=== PATIENT | male | born 1995 | race Caucasian/White ===

== ENCOUNTER 2016-07-02 05:34 | Emergency (ER) | payer OTHER ==
[~2016-07-02] VITALS: Ht 175.3 cm; Wt 58.0 kg
[2016-07-02] MEDS ORDERED: diphenhydrAMINE HCL 50 MG/ML VIAL ONE (05:36)
[2016-07-02] MEDS ORDERED: HALOPERIDOL LACTATE 5 MG/ML AMP ONE (05:37)
[2016-07-02] MEDS ORDERED: HALOPERIDOL LACTATE 5 MG/ML AMP IM ONE (05:45)
[2016-07-02] MEDS ORDERED: diphenhydrAMINE HCL 50 MG/ML VIAL IM ONE (05:45)
--- NOTE | 2016-07-02 05:50 | PD ---
HPI Chief Complaint: Psychiatric Symptoms Time Seen by Provider: 05:37 Travel History International Travel<30 days: No Contact w/Intl Traveler<30days: No History of Present Illness HPI Patient is a 20-year-old male presents to emergency department by EMS after being found unconscious by police on the side of the road. According to police officers she gave a sternal rub the patient and he was unresponsive she called for EMS and when EMS. They sternal rub him and he became quite agitated and aggravated. His only willingness to communicate to us at this point is by calling a saw "elaine everett". Patient had to be restrained and sedated by EMS. On arrival he is screaming and saying profanities. No other history is available at this time. [facility] Past Medical History Medical History: Unable to Obtain Past Surgical History Surgical History: Unable to Obtain Family History Family History: Social History Tobacco Use: No (unable to obtain) Allergies-Medications (Allergen,Severity, Reaction): Coded Allergies: UNOBTAINABLE (Unverified , 07/02/16) Reported Meds & Prescriptions Reported Meds & Active Scripts Active Active Prescriptions or Reported Medications Unobtainable Review of Systems ROS Limitations: Altered Mental Status Physical Exam Narrative GENERAL: Well-developed well-nourished agitated and aggressive, 4-point restraints and screaming profanities. SKIN: Focused skin assessment warm/dry. Patient does have an abrasion to left side of his head and face. No lacerations. Hemostatic. HEAD: No tracy signs no raccoons eyes. Normocephalic. EYES: Pupils equal and round. No scleral icterus. No injection or drainage. ENT: No nasal bleeding or discharge. Mucous membranes pink and moist. NECK: Trachea midline. No JVD. CARDIOVASCULAR: Regular rate and rhythm. No murmur appreciated. RESPIRATORY: No accessory muscle use. Clear to auscultation. Breath sounds equal bilaterally. GASTROINTESTINAL: Abdomen soft, non-tender, nondistended. Hepatic and splenic margins not palpable. MUSCULOSKELETAL: No obvious deformities. No clubbing. No cyanosis. No edema. NEUROLOGICAL: Agitated and aggressive. Will not cooperate. Data Data Last Documented VS Vital Signs Date Time Temp Pulse Resp B/P Pulse Ox O2 Delivery O2 Flow Rate FiO2 07/02/16 08:02 80 18 100/53 99 Room Air Orders Diphenhydramine Inj (Benadryl Inj) (07/02/16 05:36) Haloperidol Inj (Haldol Inj) (07/02/16 05:37) Haloperidol Inj (Haldol Inj) (07/02/16 05:45) Diphenhydramine Inj (Benadryl Inj) (07/02/16 05:45) Ct Brain W/O Iv Contrast(Rout) (07/02/16 ) Restraints Violent (07/02/16 05:58) Complete Blood Count With Diff (07/02/16 07:00) Comprehensive Metabolic Panel (07/02/16 07:00) Psych Screen (07/02/16 07:00) Drug Screen, Random Urine (07/02/16 07:00) Alcohol (Ethanol) (07/02/16 07:00) Salicylates (Aspirin) (07/02/16 07:00) Tylenol (Acetaminophen) (07/02/16 07:00) Labs Laboratory Tests Test 07/02/16 07:27 White Blood Count 8.6 TH/MM3 Red Blood Count 5.04 MIL/MM3 Hemoglobin 15.3 GM/DL Hematocrit 44.4 % Mean Corpuscular Volume 88.2 FL Mean Corpuscular Hemoglobin 30.4 PG Mean Corpuscular Hemoglobin 34.5 % Concent Red Cell Distribution Width 12.9 % Platelet Count 327 TH/MM3 Mean Platelet Volume 7.8 FL Neutrophils (%) (Auto) 65.6 % Lymphocytes (%) (Auto) 23.8 % Monocytes (%) (Auto) 7.8 % Eosinophils (%) (Auto) 2.3 % Basophils (%) (Auto) 0.5 % Neutrophils # (Auto) 5.6 TH/MM3 Lymphocytes # (Auto) 2.0 TH/MM3 Monocytes # (Auto) 0.7 TH/MM3 Eosinophils # (Auto) 0.2 TH/MM3 Basophils # (Auto) 0.0 TH/MM3 CBC Comment DIFF FINAL Differential Comment Salicylates Level 2.2 MG/DL MDM Medical Decision Making Medical Screen Exam Complete: Yes Emergency Medical Condition: Yes Differential Diagnosis Agitated delirium, intoxication, head injury, electrolyte abnormality. Narrative Course Patient was roomed in emergency department, he received Ativan 2 mg IM prior to arrival. Arrived in 4-point restraints. Security has helped us to rest of the patient from the EMS stretcher onto the hospital stretcher. He was placed in 4 point restraints. Remains agitated and aggressive. Was given Benadryl and Haldol IM. He does abrasions on the left side of his head and will not give history CT head is indicated. CT head is negative. Basic labs are ordered including tox screen. Patient was discussed with Dr. Jared Beasley at 0700 for following of labs and disposition and properly. Diagnosis Primary Impression: Delirium Scripts Unable to Obtain Active Prescriptions or Reported Meds Erasmo Bentley MD Jul 02, 2016 05:50
--- NOTE | 2016-07-02 06:47 | RADRPT ---
EXAM DATE/TIME: 07/02/2016 06:36 [facility] COMPARISON: No previous studies available for comparison. INDICATIONS : Altered mental status, ETOH along with fall. Cut above left eyebrow. RADIATION DOSE: 41.25 CTDIvol (mGy) MEDICAL HISTORY : Unobtainable SURGICAL HISTORY : Unobtainable ENCOUNTER: Initial ACUITY: 1 day PAIN SCALE: 0/10 LOCATION: cranial TECHNIQUE: Multiple contiguous axial images were obtained of the head. Using automated exposure control and adj ustment of the mA and/or kV according to patient size, radiation dose was kept as low as reasonably a chievable to obtain optimal diagnostic quality images. FINDINGS: CEREBRUM: The ventricles are normal for age. No evidence of midline shift, mass lesion, hemorrhage or acute in farction. No extra-axial fluid collections are seen. POSTERIOR FOSSA: The cerebellum and brainstem are intact. The 4th ventricle is midline. The cerebellopontine angle i s unremarkable. EXTRACRANIAL: The visualized portion of the orbits is intact. SKULL: The calvaria is intact. No evidence of skull fracture. CONCLUSION: Normal examination. Darryl Ndiaye Jr., MD on July 02, 2016 at 6:44 Board Certified Radiologist. This report was verified electronically.
[2016-07-02 07:47] LABS: AUTOMATED NEUTROPHIL # 5.6 TH/MM3 (1.8-7.7); BASOPHIL % 0.5 % (0.0-2.0); EOSINOPHIL # 0.2 TH/MM3 (0-0.4); EOSINOPHIL % 2.3 % (0.0-4.0); HEMATOCRIT 44.4 % (39.0-51.0); HEMO FLAGS DIFF FINAL; LYMPH % 23.8 % (9.0-44.0); MEAN CELL VOLUME 88.2 FL (80.0-100.0); MEAN CORPUSCULAR HEMOGLOBIN 30.4 PG (27.0-34.0); MEAN CORPUSCULAR HGB CONC 34.5 % (32.0-36.0); MONO % 7.8 % (0.0-8.0); NEUT % 65.6 % (16.0-70.0); PLATELET COUNT 327 TH/MM3 (150-450); RED BLOOD COUNT 5.04 MIL/MM3 (4.50-5.90); RED CELL DISTRIBUTION WIDTH 12.9 % (11.6-17.2); WHITE BLOOD COUNT 8.6 TH/MM3 (4.0-11.0)
[2016-07-02 08:02] VITALS: BP 100/53; PULSE 80; RESP 18; O2SAT 99
[2016-07-02 08:14] LABS: ALKALINE PHOSPHATASE 60 U/L (45-117); TOTAL BILIRUBIN ADULT 0.3 MG/DL (0.2-1.0)
[2016-07-02 08:17] LABS: ALT (GPT) 35 U/L (12-78); ANION GAP 10 MEQ/L (5-15); AST (GOT) 31 U/L (15-37); BICARBONATE 26.4 MEQ/L (21.0-32.0); BLOOD UREA NITROGEN 14 MG/DL (7-18); CHLORIDE 108 MEQ/L (98-107); GLOMERULAR FILTRATION RATE 84 ML/MIN (>89); POTASSIUM 3.3 MEQ/L (3.5-5.1); SODIUM (NA) 144 MEQ/L (136-145)
[2016-07-02 08:19] LABS: ACETAMINOPHEN LESS THAN 2.0 MCG/ML (10.0-30.0)
[2016-07-02 09:30] LABS: AMPHETAMINE, URINE NEG (NEG)
[2016-07-02 10:22] LABS: COCAINE, URINE NEG (NEG)
[2016-07-02 10:45] LABS: BARBITURATES, URINE NEG (NEG)
[2016-07-02] MEDS ORDERED: POTASSIUM CHLORIDE 20 MEQ PWD PACKET PO ONE (11:00)
[2016-07-02 11:27] VITALS: BP 110/65; PULSE 78; RESP 18; O2SAT 99
--- NOTE | 2016-07-02 14:16 | PD ---
Physical Exam Date Seen by Provider: Jul 02, 2016 Time Seen by Provider: 07:00 Narrative She was signed out to me by Dr. Erasmo Bentley, night physician. She came in combative and agitated. He was given Haldol and Benadryl for control. Laboratory tests were pending at the time of signout. Patient's labs come back showing an alkaline of 299. The rest of his labs are within normal emits except for positive cannabinoids on tox screen. Data Data Last Documented VS Vital Signs Date Time Temp Pulse Resp B/P Pulse Ox O2 Delivery O2 Flow Rate FiO2 07/02/16 11:27 78 18 110/65 99 Room Air Orders Diphenhydramine Inj (Benadryl Inj) (07/02/16 05:36) Haloperidol Inj (Haldol Inj) (07/02/16 05:37) Haloperidol Inj (Haldol Inj) (07/02/16 05:45) Diphenhydramine Inj (Benadryl Inj) (07/02/16 05:45) Ct Brain W/O Iv Contrast(Rout) (07/02/16 ) Restraints Violent (07/02/16 05:58) Complete Blood Count With Diff (07/02/16 07:00) Comprehensive Metabolic Panel (07/02/16 07:00) Drug Screen, Random Urine (07/02/16 07:00) Alcohol (Ethanol) (07/02/16 07:00) Salicylates (Aspirin) (07/02/16 07:00) Tylenol (Acetaminophen) (07/02/16 07:00) Potassium Chloride Powder (Kcl Powder) (07/02/16 11:00) Labs Laboratory Tests Test 07/02/16 07/02/16 07:27 08:20 White Blood Count 8.6 TH/MM3 Red Blood Count 5.04 MIL/MM3 Hemoglobin 15.3 GM/DL Hematocrit 44.4 % Mean Corpuscular Volume 88.2 FL Mean Corpuscular Hemoglobin 30.4 PG Mean Corpuscular Hemoglobin 34.5 % Concent Red Cell Distribution Width 12.9 % Platelet Count 327 TH/MM3 Mean Platelet Volume 7.8 FL Neutrophils (%) (Auto) 65.6 % Lymphocytes (%) (Auto) 23.8 % Monocytes (%) (Auto) 7.8 % Eosinophils (%) (Auto) 2.3 % Basophils (%) (Auto) 0.5 % Neutrophils # (Auto) 5.6 TH/MM3 Lymphocytes # (Auto) 2.0 TH/MM3 Monocytes # (Auto) 0.7 TH/MM3 Eosinophils # (Auto) 0.2 TH/MM3 Basophils # (Auto) 0.0 TH/MM3 CBC Comment DIFF FINAL Differential Comment Sodium Level 144 MEQ/L Potassium Level 3.3 MEQ/L Chloride Level 108 MEQ/L Carbon Dioxide Level 26.4 MEQ/L Anion Gap 10 MEQ/L Blood Urea Nitrogen 14 MG/DL Creatinine 1.10 MG/DL Estimat Glomerular Filtration 84 ML/MIN Rate Random Glucose 87 MG/DL Calcium Level 8.7 MG/DL Total Bilirubin 0.3 MG/DL Aspartate Amino Transf 31 U/L (AST/SGOT) Alanine Aminotransferase 35 U/L (ALT/SGPT) Alkaline Phosphatase 60 U/L Total Protein 7.1 GM/DL Albumin 4.2 GM/DL Salicylates Level 2.2 MG/DL Acetaminophen Level LESS THAN 2.0 MCG/ML Ethyl Alcohol Level 299 MG/DL Urine Opiates Screen NEG Urine Barbiturates Screen NEG Urine Amphetamines Screen NEG Urine Benzodiazepines Screen NEG Urine Cocaine Screen NEG Urine Cannabinoids Screen POS MDM Medical Record Reviewed: Yes Supervised Visit with ESRA: No Narrative Course 20-year-old male came in combative and agitated. The patient was noted to have an alcohol level of 299. His potassium was also slightly low at 3.3. He is given oral potassium replacement. He has slept it off and is awake alert and appropriate related to go home. Diagnosis Primary Impression: Acute alcohol intoxication Additional Impressions: Delirium mild hypokalemia Patient Instructions: General Instructions Departure Forms: Tests/Procedures Additional Instruction: Stop drinking alcohol Scripts Unable to Obtain Active Prescriptions or Reported Meds Disposition: 01 DISCHARGE HOME Condition: Stable Jared Beasley MD Jul 02, 2016 14:16
== END 2016-07-02 14:13 | disposition home or self-care (01) ==
LOC: NEPC 05:34
DX: F10.121 Alcohol abuse with intoxication delirium (principal); E87.6 Hypokalemia; Y90.8 Blood alcohol level of 240 mg/100 ml or more
CPT/HCPCS: 70450; 80053; 80307; 85025; 96372; 99284; J1200; J1630